=== PATIENT | female | born 1960 | race Caucasian/White ===

== ENCOUNTER 2021-11-22 10:00 | Outpatient (CLI) | payer MEDICARE | END 2021-11-22 10:01 | disposition home or self-care (01) | LOC: RAD-FRANK 10:00 | PROVIDERS: ATTEND Nurse Practitioner Family | DX: M25.562 Pain in left knee (principal) ==

== ENCOUNTER 2021-12-16 10:17 | Outpatient (CLI) | payer MEDICARE | END 2021-12-16 10:18 | disposition home or self-care (01) | LOC: BICMAMMO 10:17 | PROVIDERS: ATTEND Nurse Practitioner Family | DX: Z12.31 Encounter for screening mammogram for malignant neoplasm of breast (principal) | CPT/HCPCS: 77063; 77067 ==

== ENCOUNTER 2022-02-17 09:35 | Outpatient (CLI) | payer MEDICARE | END 2022-02-17 09:36 | disposition home or self-care (01) | LOC: TBSIIMAG 09:35 | PROVIDERS: ATTEND Orthopaedic Surgery | DX: M23.92 Unspecified internal derangement of left knee (principal); S83.282A Other tear of lateral meniscus, current injury, left knee, initial encounter; S83.281A Other tear of lateral meniscus, current injury, right knee, initial encounter ==

== ENCOUNTER 2024-08-25 15:49 | Emergency (ER) | payer MEDICAID, MEDICARE ==
[2024-08-25 17:53] LABS: Bacteria/HPF None Seen HPF (None Seen); Bilirubin Negative (Negative); Blood, Urine Negative (Negative); CAUTI Indications for Culture Pelvic or flank pain; Clarity Clear (Clear); Glucose, Urine (Dipstick) 50 mg/dL (Negative); Ketone, Urine Negative (Negative); Leukocyte Negative Leu/uL (Negative); Nitrite Negative (Negative); Protein, Urine (Dipstick) 10 mg/dL (Neg-Trace); RBC/HPF 0-3 HPF (0-3); Squamous Epithelial 0-3 HPF (0-3); Urobilinogen Normal mg/dL (Less than 2); WBC/HPF 0-3 HPF (0-3)
[2024-08-25 17:54] LABS: Specific Gravity, Urine Greater than 1.060 (1.002-1.036)
[2024-08-25 17:55] LABS: Urine Culture Reflex No No
[2024-08-25 18:05] LABS: #Basophils 0.04 10x3/uL (0.0-0.2); %Basophils 0.5 % (0.0-1.0); %Eosinophils 0.5 % (0.0-10.0); %Lymphocytes 26.4 % (21.0-51.0); %Monocytes 6.5 % (0.0-10.0); %Neutrophils 65.8 % (42.0-75.0); Hemoglobin 14.2 g/dL (12.0-16.0); Mean Corpuscular HGB CONC 32.3 g/dL (32.0-36.0); Mean Corpuscular Hemoglobin 29.8 pg (27.0-31.0); Mean Corpuscular Volume 92.4 fL (78.0-98.0); Mean Platelet Volume 10.5 fL (7.4-10.4); Platelet Count 342 10x3/uL (130-400); RBC Distribution Width 13.9 % (11.5-14.5); Red Blood Cell (RBC) Count 4.76 mill/uL (4.20-5.40)
[2024-08-25 18:19] LABS: ALT (SGPT) 20 U/L (8-55); AST (SGOT) 24 U/L (5-34); Albumin 3.9 g/dL (3.4-4.8); Alkaline Phosphatase 93 U/L (40-110); Anion Gap 13 mmol/L (10-20); BUN (Urea Nitrogen) 7 mg/dL (9.8-20.1); Bilirubin, Total 0.5 mg/dL (0.2-1.2); Calc. Creatinine Clearance 0 mL/min (70-130); Calcium 9.6 mg/dL (7.8-10.44); Carbon Dioxide 27 mmol/L (23-31); Chloride 102 mmol/L (98-107); Estimated GFR 97; Globulin 3.6 g/dL (2.4-3.5); Glucose 136 mg/dL (80-115); Potassium 3.6 mmol/L (3.5-5.1); Protein, Total 7.5 g/dL (5.8-8.1); Sodium 138 mmol/L (136-145)
[2024-08-25] MEDS ORDERED: Acetaminophen 500 MG TAB ONE (18:19)
[2024-08-25] MEDS ORDERED: Pantoprazole 40 MG VIAL ONE (18:19)
[2024-08-25] MEDS ORDERED: Ondansetron PF 4 MG/2 ML Vial ONE (18:19)
[2024-08-25 18:23] LABS: Troponin I Less than 0.010 ng/mL (< 0.028)
== END 2024-08-25 20:21 | disposition home or self-care (01) ==
LOC: ERS 15:49
DX: R11.2 Nausea with vomiting, unspecified (principal); M79.7 Fibromyalgia; E11.9 Type 2 diabetes mellitus without complications
CPT/HCPCS: 71045; 74177; 80053; 81001; 83605; 83690; 83735; 84484; 85025; 93005; J2405; J2470; 36415; 96361; 96374; 96375

== ENCOUNTER 2024-08-28 08:48 | Day surgery (SDC) | payer MEDICARE ==
[2024-08-28] MEDS: Sodium Chloride 0.9% 1,000 ML IV SCH (09:22)
[2024-08-28] MEDS ORDERED: Ondansetron PF 4 MG/2 ML Vial ONE (09:23)
[2024-08-28] MEDS: Ondansetron PF 4 MG/2 ML Vial IVP PRN (09:26)
[2024-08-28 09:38] VITALS: TEMP 98.2
[2024-08-28] MEDS: Multivitamins, Adult 10 ML, Thiamine HCl 100 MG in Sodium Chloride 0.9% 1,000 ML IV SCH (09:38)
[2024-08-28] MEDS ORDERED: diphenhydrAMINE 50 MG/ML VIAL ONE (09:58)
[2024-08-28] MEDS: diphenhydrAMINE 50 MG/ML VIAL IVP SCH (10:00)
[2024-08-28 10:09] VITALS: BP 139/67
== END 2024-08-28 13:27 | disposition home or self-care (01) ==
LOC: ONC/OP 08:48
PROVIDERS: ATTEND Surgery
DX: E86.0 Dehydration (principal); Z88.5 Allergy status to narcotic agent; Z88.8 Allergy status to other drugs, medicaments and biological substances
CPT/HCPCS: 96361; 96374; 96375; G0463; J1200; J2405; J3411; J7030; 99212